=== PATIENT | male | born 1990 | race Two or more races ===

== ENCOUNTER 2023-04-14 15:23 | Outpatient (CLI) | payer OTHER ==
--- NOTE | 2023-04-14 16:11 | Sleep Patient Instructions ---
Sleep Center Visit Summary - Patient Visit Information Reason for Visit: Initial consult for evaluation of sleep disordered breathing and other sleep issues. - Patient Instructions Instructions Attached: Sleep Study, Sleep Clinic Visit Additional Instructions: You will be completing a sleep study, either an in-lab polysomnography (PSG) or home sleep study (HST). You will follow-up in the sleep care office after the sleep study is completed to hear the results and talk about therapy, if needed. You will be called by our office staff to schedule this appointment, but you may contact us with any questions. - Clinic Information Contact: [facility] [address] [place] [address] [email or web address] T: [phone]
--- NOTE | 2023-04-14 16:18 | SLEEP CARE CONSULTATION ---
Information from patient questionnaire entered by Symone Ryan. I have reviewed and concur with the information entered by Symone Ryan. This document represents the service I personally performed and the decisions made by me, Mary Jo Mujica ARNP. History of Present Illness Service Date and Time: 04/14/2023 1523 Reason for Visit: New patient Chief Complaint: reports: Unrefreshed sleep, Snoring, Observed pauses in breathing, Fatigue Date of Onset: 3+YRS Usual bedtime: 10PM Time it takes to fall asleep: 30MIN Snores at night: Yes Observed to quit breathing while asleep: No Sleeps alone due to snoring: No Number of times waking at night: OFTEN Reasons for waking at night: reports: Choking, Snoring, Gasping for air Toss, Turn, or Twitch while sleeping: Yes Recalls having dreams: Yes Usually gets out of bed at: 0600 Feels refreshed in the morning: No Morning headache: Yes (almost every morning; last 1-2 hours) Sleepy or fatigued during the day: Yes Ever fallen asleep while driving: No Takes day naps: Yes (rare) Dreams during day naps: No Prior sleep studies: Yes Year and Where: [place] Jul 2022 Additional HPI information: I had the pleasure of seeing CLAUDIA NUNES today regarding the possibility of him having a sleep disorder. His current complaints are fatigue, observed pauses in breathing, snoring and unrefreshed sleep. He had a sleep study done at [facility] on 07/10/2022. It showed an AHI of 0.9 and chad oxygen saturation of 88%. His RDI was 10.5. The last physician was going to have him repeat study with a sleep aide because he was awake a lot throughout the night of the sleep study. - Parasomnia Symptoms Ever been unable to move upon waking from sleep: No Walks in sleep: No Talks in sleep: Yes Ever acted out dreams in sleep: No Ever felt weak in the knees when startled or emotional: No Bothered by creepy, crawly, restless sensations in legs: No Problems with memory or concentration: No Subjective Initial [place] Sleepiness Scale score: 7 (04/14/23) Past Medical History Past Medical History: reports: Other (heartburn; ganglion cyst on right wrist; vasectomy) Social History The patient's occupation is a AM. Patient is and lives in [place]. Have you smoked in the past 12 months: No Alcohol use: Yes Alcohol amount and frequency: 2 GLASS 1X MONTH OR LESS Caffeine use: Yes Caffeine amount and frequency: 1 CUP COFFEE on weekdays Family History Family history of sleep disordered breathing: No Allergies and Home Medications Known drug allergies: No Drug allergies reviewed: Yes Home medication list reviewed: Yes (no daily medications) Review of Systems Weight gain over past 5 years: 15 Cardiovascular: reports: leg or foot swelling. denies: high blood pressure Gastrointestinal: reports: heartburn Neurological: denies: headaches Psychiatric: denies: anxiety, depression Ear/Nose/Throat: reports: nasal congestion, wisdom teeth removed. denies: tonsillectomy Musculoskeletal: reports: joint pain, back pain, muscle pain or cramping Immunologic: denies: allergies to food or environment Physical Exam Vital signs obtained and entered by: SYMONE Lorenzo MA Blood Pressure: 122/68 (LEFT ARM) Cuff size: long Heart Rate: 70 O2 Saturation: 98 Height: 5 ft 7 in Weight: 216 lb 6.4 oz Body Mass Index: 33.9 BMI Classification: Obese Neck circumference: 17.25 Mouth and throat: narrow oropharynx Soft palate: long Hard palate: normal Uvula: normal Uvula visualization: 25% Mallampati Class III Tongue: enlarged in size with teeth shah on lateral edges Tonsils: 2+ Neck: normal w/o lymphadenopathy or thyromegaly Heart: regular rate and rhythm Lungs: clear bilaterally Impression and Plan 1. Suspected Obstructive Sleep Apnea-Hypopnea Syndrome, as suggested by a history of loud and irregular snoring, observed cessation of breath while asleep, gasping or choking in sleep, morning headache, frequent awakening during the night, unrefreshed sleep, and excessive daytime sleepiness. Patient was unable to sleep much at his last sleep study and may need a sleep aide. I will prescribe a 5 mg Zolpidem for night of sleep study. Narrow oropharynx and obesity are common predisposing factors for obstructive sleep apnea-hypopnea syndrome. I recommend proceeding to polysomnography to confirm the diagnosis and to assess severity. If the patient has significant sleep disordered breathing, a manual CPAP titration study will also be performed to find the optimal treatment pressure. I informed the patient of what the sleep studies involve and after some discussion, obtained agreement to proceed. The pathophysiology of obstructive sleep apnea-hypopnea syndrome was discussed with the patient and health risks of cardiovascular and cerebrovascular disease if not treated. Risks of drowsy driving discussed in detail and patient advised to avoid long distance driving and to taffy puller at the first sign of drowsiness. Patient agreed to plan. * Schedule polysomnography +- manual CPAP titration study and return in 1-2 weeks after the study to discuss result and initiate therapy. * 5 mg Zolpidem by mouth for night of study * Avoid long distance driving or driving when feeling sleepy. * Avoid alcohol, sedative and muscle relaxant around bedtime. * Attempt to lose weight. * Review instructions provided by trained office staff on how to prepare for the sleep study. * Return for follow-up after sleep study completed. Counseling Topics: Weight loss health impact Visit Type: In Office Time Spent with Patient (minutes): 30 Provider Statement: I spent 100% of the Face to Face Visit with the patient with greater than 50% spent counseling the patient and coordination of care.
[2023-04-14 16:20] VITALS: BP 122/68
== END 2023-04-14 15:24 | disposition home or self-care (01) ==
LOC: SC 15:23
PROVIDERS: ATTEND Nurse Practitioner Family
DX: R06.83 Snoring (principal); G47.8 Other sleep disorders; R06.81 Apnea, not elsewhere classified; G47.10 Hypersomnia, unspecified; R53.83 Other fatigue; E66.9 Obesity, unspecified; Z68.33 Body mass index [BMI] 33.0-33.9, adult
CPT/HCPCS: 99203; 99212

== ENCOUNTER 2023-05-06 20:45 | Outpatient (CLI) | payer OTHER | END 2023-05-06 20:46 | disposition home or self-care (01) | LOC: SC 20:45 | PROVIDERS: ATTEND Nurse Practitioner Family | DX: R06.83 Snoring (principal) | CPT/HCPCS: 95810 ==

== ENCOUNTER 2023-06-03 16:03 | Outpatient (CLI) | payer OTHER ==
--- NOTE | 2023-06-03 16:42 | Sleep Patient Instructions ---
Sleep Center Visit Summary - Patient Visit Information Reason for Visit: Sleep study follow up - Patient Instructions Instructions Attached: Snoring Tips Prevent Additional Instructions: Your sleep study today was negative for significant sleep disordered breathing. However, you did have elevated respiratory episodes when sleeping on your back. You should avoid sleeping on your back to control these respiratory episodes. You were found to have episodes of snoring. There are different ways to control snoring including weight loss, oral devices made by a dentist or surgical options through ENT specialist. You should not use oral devices that do not fit properly because they can affect your bite. You should also check insurance coverage of oral devices for snoring because they may not be cover well. You may obtain a referral to an ENT specialist through your primary provider Follow-up as needed. - Clinic Information Contact: [facility] [address] [place] [address] [email or web address] T: [phone]
--- NOTE | 2023-06-03 16:44 | SLEEP CARE CONSULTATION ---
Information from patient questionnaire entered by Symone Ryan. I have reviewed and concur with the information entered by Symone Ryan. This document represents the service I personally performed and the decisions made by , Mary Jo Mujica ARNP. History of Present Illness Service Date and Time: 06/03/2023 1603 Initial [place] Sleepiness Scale score: 7 (04/14/23) Current [place] Sleepiness Scale score: 7 (06/03/23) Additional HPI information: CLAUDIA NUNES returns for follow up and results of the recently performed polysomnography. The patient was informed of the following findings: No significant sleep disordered breathing with an average AHI of 1.7 and chad oxygen saturation of 89%. Supine AHI was slightly elevated at 5.2. I explained the pathophysiology behind obstructive sleep apnea. Patient does not have sleep apnea and was advised how weight gain could increase the risk of developing sleep apnea in the future. I strongly encouraged the patient to lose weight. Patient does not have significant sleep disordered breathing but has elevated AHI in supine position so advised positional therapy. Methods to achieve positional management therapy were discussed; such as, positioning with pillows, wearing a T-shirt with tennis balls sewn into the back or commercially available products. Patient has moderate to loud snoring. Snoring can be reduced by weight loss. Weight loss is best achieved with diet consult. Patient instructed to contact PCP for referral. Snoring can also be treated with an oral appliance from a dentist. Advised to check insurance coverage. In addition, an ENT evaluation can be do to see if other treatment is indicated. Patient does not drink alcohol. Patient was cautioned about risks of drowsy driving until sleepiness symptoms resolve. Patient denies drowsy driving. Sleep Study - Results Type of Sleep Study: Polysomnography (COMPLETED 05/06/23) Prior sleep studies: Yes Year and Where: [place] Jul 2022 Polysomnography/Home Sleep Study results: IMPRESSION: The quality of the study is good. The patient had normal sleep efficiency. The sleep architecture was normal. Respiratory monitoring showed no significant sleep disordered breathing obstructive sleep apneahypopnea (AHI = 1.7) associated with frequent arousals, oxyhemoglobin desaturation and mild hypoxia (chad oxygen saturation of 89%). The few respiratory events occurred almost exclusively during supine sleep (supine AHI = 5.2; non-supine = 0.20). Snore was moderate to loud in intensity. There was no significant periodic leg movement of sleep. Cardiac rhythm was normal sinus rhythm without significant arrhythmia. No abnormal behavior (parasomnia) observed during the night. Allergies and Home Medications Known drug allergies: No Drug allergies reviewed: Yes Home medication list reviewed: Yes (no changes) Allergy and home medication list: Allergies No Known Drug Allergies Allergy (Verified 06/02/23 14:17) Review of Systems Review of systems same as previous: No (2 ingrown toenails removal) Physical Exam Vital signs obtained and entered by: SYMONE Lorenzo MA Blood Pressure: 128/80 (LEFT ARM) Cuff size: long Heart Rate: 85 O2 Saturation: 97 Height: 5 ft 7 in Weight: 220 lb 3.2 oz Body Mass Index: 34.4 BMI Classification: Obese Impression and Plan 1. Snoring but no significant sleep disordered breathing. However, patient has slightly elevated supine AHI at 5.2 and should avoid sleeping supine. Patient advised that often weight loss will reduce snoring as well as apnea risk. An oral appliance can also be used for snoring. This would require a dental consultation. Patient cautioned not to use other online appliances as can cause bite issues. A list of accredited dentists in [facility] and one local dentist who marisol es oral appliances is available in office as needed. Patient is advised to check if insurance will cover. An ENT consult can also be helpful to determine if any other treatment is an option. 2. Obesity, unspecified. Currently patients BMI is 34.4. Obesity increases the risk of apnea, CPAP pressure requirements and overall health risks especially cardiovascular and diabetes. Thus patient is advised to lose weight. * Attempt to lose weight * Return as needed for follow up. Counseling Topics: Weight loss health impact Visit Type: In Office Time Spent with Patient (minutes): 13 Provider Statement: I spent 100% of the Face to Face Visit with the patient with greater than 50% spent counseling the patient and coordination of care.
[2023-06-04 08:19] VITALS: BP 128/80
== END 2023-06-03 16:04 ==
LOC: SC 16:03
PROVIDERS: ATTEND Nurse Practitioner Family
DX: R06.83 Snoring (principal); E66.9 Obesity, unspecified; Z68.34 Body mass index [BMI] 34.0-34.9, adult
CPT/HCPCS: 99212